=== PATIENT | female | born 1945 | race Two or more races ===

== ENCOUNTER 2018-07-08 08:13 | Inpatient (IN) | payer OTHER ==
[~2018-07-08] VITALS: Ht 160 cm; Wt 68.6 kg
[2018-07-08 09:12] LABS: Basophils # (auto) 0.1 uL; Basophils % (auto) 1.1 % (0.0-2.0); Eosinophils # (auto) 0.1 uL; Eosinophils % (auto) 1.8 % (0.0-7.0); Hematocrit 44.7 % (36.0-46.0); Lymphocytes % (auto) 39.9 % (10.0-50.0); Mean Corpuscular Hemoglobin 30.2 pg (28.0-32.0); Mean Corpuscular Hgb Conc. 33.7 g/dL (32.0-36.0); Mean Corpuscular Volume 89.7 fL (80.0-100.0); Monocytes # (auto) 0.5 uL; Monocytes % (auto) 6.7 % (0.0-12.0); Neutrophils # (auto) 3.8 uL; Neutrophils % (auto) 50.5 % (37.0-80.0); Platelet Count (auto) 221 10^3/uL (140-450); Red Blood Cells 4.98 10^6/uL (4.0-5.20); White Blood Cell 7.5 10^3/uL (4.4-10.8)
[2018-07-08 09:29] LABS: Albumin 3.9 g/dL (3.4-5.0); Anion Gap 5 (5-15); Blood Urea Nitrogen 17 mg/dL (7-18); Carbon Dioxide 25 mmol/L (21-32); Chloride 104 mmol/L (98-107); Glucose 92 mg/dL (74-106); Magnesium 2.5 mg/dL (1.6-2.6); Potassium 4.1 mmol/L (3.5-5.1); Sodium 134 mmol/L (136-145)
[2018-07-08 09:35] LABS: Alanine Aminotransferase 22 U/L (13-56); Alkaline Phosphatase 72 U/L (45-117); Aspartate Aminotransferase 16 U/L (15-37); BUN/Creatinine Ratio 17.3; Bilirubin, Total 0.5 mg/dL (0.2-1.0); GFR African American 72 mL/min; GFR Non-African American 59 mL/min; Total Protein 7.8 g/dL (6.4-8.2)
[2018-07-08] MEDS ORDERED: SODIUM CHLORIDE 0.9% 1,000 ML IV ONE (10:14)
[2018-07-08] MEDS ORDERED: MORPHINE SULFATE 4 MG/ML SYR/VIAL IV ONE (10:15)
[2018-07-08] MEDS ORDERED: METOPROLOL TARTRATE 1MG/1ML-5ML VIAL IV ONE (10:15)
[2018-07-08] MEDS ORDERED: ONDANSETRON HCL 4 MG/2 ML VIAL ONE (10:49)
[2018-07-08] MEDS ORDERED: ONDANSETRON HCL 4 MG/2 ML VIAL IV ONE (11:00)
[2018-07-08] MEDS ORDERED: LORazepam 0.5 MG TAB PO PRN (14:30)
[2018-07-08] MEDS ORDERED: MORPHINE SULFATE 4 MG/ML SYR/VIAL IV PRN ×2 (14:30)
[2018-07-08] MEDS ORDERED: LABETALOL HCL 5 MG/ML ML 20ML VIAL IV PRN (14:30)
[2018-07-08] MEDS ORDERED: TEMAZEPAM 15 MG CAP PO PRN (14:30)
[2018-07-08] MEDS ORDERED: ACETAMINOPHEN 500 MG TAB PO PRN (14:30)
[2018-07-08] MEDS ORDERED: NITROGLYCERIN 0.4 MG SL TAB SL PRN (14:30)
[2018-07-08] MEDS ORDERED: LACTULOSE 20Gm/30ML SOLN PO PRN (14:30)
[2018-07-08] MEDS ORDERED: ONDANSETRON HCL 4 MG/2 ML VIAL IV PRN (14:30)
[2018-07-08] MEDS ORDERED: HYDROcodone-ACET 5/325MG TAB PO PRN (14:30)
[2018-07-08] MEDS: SODIUM CHLORIDE 0.9% 1,000 ML IV SCH (14:44)
[2018-07-08] MEDS: ASPirin 81 mg TAB PO SCH (14:45)
[2018-07-08] MEDS: ENOXAPARIN SOD 40 MG/0.4 ML SYRINGE SC SCH (14:45)
[2018-07-08] MEDS: NITROGLYCERIN 0.2MG/HR TOPICAL PATCH TD SCH (14:45)
[2018-07-08] MEDS: ENALAPRIL MALEATE 10 MG TAB PO SCH (14:57)
[2018-07-08 16:55] VITALS: BP 136/86
[2018-07-08 17:37] VITALS: BP 136/86
[2018-07-08] MEDS ORDERED: LOSA25TA40 PO (19:29)
[2018-07-08 22:00] VITALS: BP 113/68
[2018-07-08] MEDS ORDERED: ATORVASTATIN 20 MG TAB PO SCH (22:00)
[2018-07-09] MEDS: SODIUM CHLORIDE 0.9% 1,000 ML IV SCH (03:28)
[2018-07-09 05:00] VITALS: BP 111/74
[2018-07-09 05:41] LABS: Cholesterol 184 mg/dL (< 200); HDL Cholesterol 47 mg/dL (40-59); LDL Cholesterol 118 mg/dL (< 100); Triglycerides 141 mg/dL (< 150)
[2018-07-09 08:53] VITALS: BP 139/80
[2018-07-09] MEDS: ENOXAPARIN SOD 40 MG/0.4 ML SYRINGE SC SCH (10:00)
[2018-07-09] MEDS ORDERED: PANTOPRAZOLE 40 MG TAB PO SCH (10:00)
[2018-07-09] MEDS: NITROGLYCERIN 0.2MG/HR TOPICAL PATCH TD SCH (10:00)
[2018-07-09] MEDS: ASPirin 81 mg TAB PO SCH (10:06)
[2018-07-09] MEDS: ENALAPRIL MALEATE 10 MG TAB PO SCH (10:07)
[2018-07-09 13:12] VITALS: BP 137/84
[2018-07-09] MEDS ORDERED: IOHEXOL 350 MG/ML 100ML IJ ONE (13:45)
[2018-07-09 15:56] VITALS: BP 137/84
[2018-07-09 17:07] VITALS: BP 144/86
== END 2018-07-09 17:15 | disposition home or self-care (01) | DRG 206 ==
LOC: ER 08:13 → TELE 14:44 → TELE-WESTW 15:50
PROVIDERS: ADMIT Internal Medicine; ATTEND Internal Medicine
DX: M94.0 Chondrocostal junction syndrome [Tietze] (principal); E87.1 Hypo-osmolality and hyponatremia; I10 Essential (primary) hypertension; E66.9 Obesity, unspecified; E78.5 Hyperlipidemia, unspecified; J44.9 Chronic obstructive pulmonary disease, unspecified; Z82.49 Family history of ischemic heart disease and other diseases of the circulatory system; Z90.710 Acquired absence of both cervix and uterus; Z68.26 Body mass index [BMI] 26.0-26.9, adult
CPT/HCPCS: 36415; 71046; 71275; 80053; 80061; 82550; 83735; 84443; 84484; 85025; 85379; 85652; 86141; 93005; 94761; 96360; 96361; A6257; G0378; J2405

== ENCOUNTER 2020-07-04 21:27 | Emergency (ER) | payer OTHER ==
[~2020-07-04] VITALS: Ht 160 cm; Wt 68.9 kg
[~2020-07-04 21:27] MED LIST: LOSA25TA38 PO
[2020-07-04 22:36] LABS: Basophils # (auto) 0.1 10 ^3/uL (0-0.2); Basophils % (auto) 0.9 % (0.0-2.0); Eosinophils # (auto) 0.2 10 ^3/uL (0-0.8); Eosinophils % (auto) 2.2 % (0.0-7.0); Hematocrit 40.6 % (36.0-46.0); Hemoglobin 13.6 g/dL (12.2-16.2); Lymphocytes % (auto) 37.7 % (10.0-50.0); Mean Corpuscular Hemoglobin 30.7 pg (28.0-32.0); Mean Corpuscular Hgb Conc. 33.6 g/dL (32.0-36.0); Mean Corpuscular Volume 91.3 fL (80.0-100.0); Monocytes # (auto) 0.7 10 ^3/uL (0-1.3); Monocytes % (auto) 6.8 % (0.0-12.0); Neutrophils # (auto) 5.5 10 ^3/uL (1.6-8.6); Neutrophils % (auto) 52.4 % (37.0-80.0); Platelet Count (auto) 219 10^3/uL (140-450); Red Blood Cells 4.44 10^6/uL (4.0-5.20); Red Cell Distribution Width 12.9 % (11.8-14.3); White Blood Cell 10.5 10^3/uL (4.4-10.8)
[2020-07-04 22:47] LABS: Urine Bacteria FEW /hpf (None Seen); Urine Blood Negative /uL (Negative); Urine Specific Gravity 1.013 (1.001-1.035); Urine WBC 26 /hpf (0 - 5)
[2020-07-04 22:57] LABS: Alanine Aminotransferase 20 U/L (13-56); Albumin 3.5 g/dL (3.4-5.0); Anion Gap 7 (5-15); Aspartate Aminotransferase 13 U/L (15-37); BUN/Creatinine Ratio 24.6; Blood Urea Nitrogen 28 mg/dL (7-18); Calcium 9.2 mg/dL (8.5-10.1); Carbon Dioxide 25 mmol/L (21-32); Chloride 107 mmol/L (98-107); GFR African American 60 mL/min; GFR Non-African American 50 mL/min; Glucose 103 mg/dL (74-106); Sodium 139 mmol/L (136-145)
[2020-07-04 23:00] LABS: Alkaline Phosphatase 78 U/L (45-117); Bilirubin, Total 0.3 mg/dL (0.2-1.0); Total Protein 7.5 g/dL (6.4-8.2)
[2020-07-04 23:31] LABS: INR 0.97 (0.9-1.15); Partial Thromboplastin Time 25.1 sec (23.0-31.2)
[2020-07-04] MEDS ORDERED: cefTRIAXone 1GM/50ML D5W 50 ML IV ONE (23:45)
[2020-07-04] MEDS ORDERED: SODIUM CHLORIDE 0.9% 1,000 ML IV ONE (23:45)
[2020-07-04] MEDS ORDERED: cefTRIAXone SOD 1,000 MG VL IM ONE (23:45)
[2020-07-05 00:30] VITALS: BP 147/94
[2020-07-05] MEDS ORDERED: KETOROLAC TROMETH 30 MG/ML 1ML VIAL IV ONE (01:15)
== END 2020-07-05 02:32 | disposition home or self-care (01) ==
LOC: ER 21:27
DX: S29.012A Strain of muscle and tendon of back wall of thorax, initial encounter (principal); M47.892 Other spondylosis, cervical region; M47.896 Other spondylosis, lumbar region; M47.894 Other spondylosis, thoracic region; N39.0 Urinary tract infection, site not specified; I10 Essential (primary) hypertension; E78.5 Hyperlipidemia, unspecified; X58.XXXA Exposure to other specified factors, initial encounter; Y93.89 Activity, other specified; Y92.89 Other specified places as the place of occurrence of the external cause; Y99.8 Other external cause status
CPT/HCPCS: 36415; 71045; 72125; 72128; 72131; 80053; 81001; 83880; 84484; 85025; 85610; 85730; 93005; 96365; 96375; 99285; J0696; J1885